=== PATIENT | male | born 1955 | race Caucasian/White ===

== ENCOUNTER 2017-05-04 12:42 | Emergency (ER) | payer BC, OTHER ==
[2017-05-04 13:51] LABS: CHLORIDE,CL 106 mmol/L (101-111); SODIUM,NA 143 mmol/L (135-145)
[2017-05-04] MEDS ORDERED: Sodium Chloride 0.9% 10 ML Syringe FLUSH PRN (14:10)
[2017-05-04] MEDS ORDERED: Pantoprazole 40 MG Vial IVPUSH ONE (14:11)
[2017-05-04] MEDS ORDERED: Sodium Chloride 0.9% 1,000 ML IV ONE (14:11)
[2017-05-04] MEDS ORDERED: Pantoprazole 40 MG in Sodium Chloride 0.9% 100 ML IV SCH (14:12)
--- NOTE | 2017-05-04 14:25 | EDM.PDOC ---
ED HPI GENERAL MEDICAL PROBLEM - General Chief Complaint: Gastrointestinal Problem Stated Complaint: [id number] SENT FROM CLINIC Time Seen by Provider: 05/04/17 12:55 Source of Information: Reports: Patient History Limitations: Reports: No Limitations - History of Present Illness INITIAL COMMENTS - FREE TEXT/NARRATIVE: Patient presents with c/o black stools for the past 3 days. He states he was feeling constipated and took a laxative this morning and his stool today was more brown. He does however c/o vague abdominal pain (burning and ache), fatigue , nausea at times for the past year. Onset: Today Onset Date: 05/01/17 Duration: Getting Worse Location: Reports: Abdomen Quality: Reports: Ache, Burning, Other (feeling of indigestion\) Severity: Mild Improves with: Reports: None Worsens with: Reports: None Associated Symptoms: Reports: Malaise, Weakness Generalized Pain Score (Numeric/FACES): 4 - Related Data Allergies Allergy/AdvReac Type Severity Reaction Status Date / Time No Known Allergies Allergy Verified 05/04/17 13:01 Home Meds: Home Meds Omeprazole 1 tab PO BEDTIME 05/27/16 [History] Aspirin [Artur Chewable Aspirin] 1 tab PO DAILY 05/04/17 [History] Past Medical History HEENT History: Reports: Hard of Hearing Cardiovascular History: Reports: None Respiratory History: Reports: None Gastrointestinal History: Reports: GERD Genitourinary History: Reports: None, Other (See Below) Other Genitourinary History: scheduled for prostate bx in near future Musculoskeletal History: Reports: Back Pain, Chronic Neurological History: Reports: Headaches, Chronic Other Neuro History: facial neuralgia Psychiatric History: Reports: PTSD Endocrine/Metabolic History: Reports: None Hematologic History: Reports: None, B12 Deficiency, Other (See Below) Other Hematologic History: lyme disease Immunologic History: Reports: Other (See Below) Other Immunologic History: lyme disease Oncologic (Cancer) History: Reports: None Dermatologic History: Reports: Other (See Below) Other Dermatologic History: thick cracked heles - Infectious Disease History Infectious Disease History: Reports: Chicken Pox, Other (See Below) Other Infectious Disease History: lyme disease - Past Surgical History Head Surgeries/Procedures: Reports: None HEENT Surgical History: Reports: None Cardiovascular Surgical History: Reports: None GI Surgical History: Reports: Appendectomy, Hernia Repair/Other, Other (See Below) Other GI Surgeries/Procedures: hemorrhoidectomy Social & Family History - Family History HEENT: Reports: Epistaxis Cardiac: Reports: PA Respiratory: Reports: None GI: Reports: None : Psychiatric: Reports: None Endocrine/Metabolic: Reports: None Hematologic: Reports: None Immunologic: Reports: None Dermatologic: Reports: None Oncologic: Reports: Prostate, Other (See Below) Other Oncologic Family History: stomach - Tobacco Use Smoking Status *Q: Current Every Day Smoker Years of Tobacco use: 42 Packs/Tins Daily: 0.3 Second Hand Smoke Exposure: No - Caffeine Use Caffeine Use: Reports: Coffee Other Caffeine Use: 16oz - Alcohol Use Days Per Week of Alcohol Use: 3 Number of Drinks Per Day: 3 Total Drinks Per Week: 9 - Recreational Drug Use Recreational Drug Use: No ED ROS GENERAL - Review of Systems Review Of Systems: See Below ED EXAM, GI/ABD - Physical Exam Exam: See Below Exam Limited By: No Limitations General Appearance: Alert, WD/WN, No Apparent Distress Ears: Normal External Exam, Hearing Grossly Normal Nose: Normal Inspection, No Blood Throat/Mouth: Normal Inspection, Normal Voice, No Airway Compromise Neck: Normal Inspection, Supple, Non-Tender, Full Range of Motion Respiratory/Chest: No Respiratory Distress, Lungs Clear, Normal Breath Sounds, No Accessory Muscle Use, Chest Non-Tender Cardiovascular: Normal Peripheral Pulses, Regular Rate, Rhythm, No Edema, No Gallop, No JVD, No Murmur, No Rub GI/Abdominal Exam: Normal Bowel Sounds, Soft, No Distention, Tender (diffuse) (Male) Exam: Deferred Rectal (Males) Exam: Normal Rectal Tone, Heme + Stool Back Exam: Normal Inspection, CVA Tenderness (L), CVA Tenderness (R), Decreased Range of Motion Extremities: Normal Inspection, Normal Range of Motion, Non-Tender, No Pedal Edema, Normal Capillary Refill Neurological: Alert, Oriented, Normal Cognition, Normal Gait Psychiatric: Normal Affect, Normal Mood Skin Exam: Warm, Dry, Intact, Normal Color, No Rash Lymphatic: No Adenopathy Course - Vital Signs Last Recorded V/S: Last Vital Signs Temp 97.2 F 05/04/17 12:54 Pulse 88 05/04/17 16:01 Resp 18 05/04/17 16:01 BP 126/69 05/04/17 16:01 Pulse Ox 98 05/04/17 16:01 - Orders/Labs/Meds Labs: Laboratory Tests 05/04/17 05/04/17 05/04/17 Range/Units 13:24 13:24 13:24 WBC 11.6 H (5.0-10.0) 10^3/uL RBC 3.50 L (4.6-6.2) 10^6/uL Hgb 11.5 L (14.0-18.0) g/dL Hct 34.0 L (40.0-54.0) % MCV 97.1 (80-100) fL MCH 32.9 (27.0-34.0) pg MCHC 33.8 (33.0-35.0) g/dL Plt Count 318 (150-450) 10^3/uL Neut % (Auto) 71.8 (42.2-75.2) % Lymph % (Auto) 17.5 L (20.5-50.1) % [place] % (Auto) 8.1 H (2-8) % Eos % (Auto) 2.3 (1.0-3.0) % Baso % (Auto) 0.3 (0.0-1.0) % PT 9.2 (9.0-12.0) SEC INR 0.9 (0.9-1.2) APTT (22.0-34.0) SEC Sodium 143 (135-145) mmol/L Potassium 4.3 (3.6-5.0) mmol/L Chloride 106 (101-111) mmol/L Carbon Dioxide 26.0 (21.0-31.0) mmol/L Anion Gap 15.3 BUN 26 H (7-18) mg/dL Creatinine 1.1 (0.6-1.3) mg/dL Est Cr Clr Drug Dosing 78.38 mL/min Estimated GFR (MDRD) > 60 BUN/Creatinine Ratio 23.63 Glucose 104 (74-105) mg/dL Calcium 9.2 (8.4-10.2) mg/dl Total Bilirubin 0.5 (0.2-1.0) mg/dL AST 23 (10-42) IU/L ALT 28 (10-60) IU/L Alkaline Phosphatase 57 (42-121) IU/L Total Protein 7.4 (6.7-8.2) g/dl Albumin 4.2 (3.2-5.5) g/dl Globulin 3.2 Albumin/Globulin Ratio 1.31 TSH, Ultra Sensitive (0.35-7.0) uIu/mL Urine Color (YELLOW) Urine Appearance (CLEAR) Urine pH (5.0-9.0) Ur Specific [place] (1.005-1.030) Urine Protein (NEGATIVE) Urine Glucose (UA) (NEGATIVE) Urine Ketones (NEGATIVE) Urine Occult Blood (NEGATIVE) Urine Nitrite (NEGATIVE) Urine Bilirubin (NEGATIVE) Urine Urobilinogen (0.2-1.0) mg/dL Ur Leukocyte Esterase (NEGATIVE) Urine RBC /HPF Urine WBC (0-5/HPF) /HPF Ur Epithelial Cells /HPF Urine Bacteria (0-FEW/HPF) /HPF Urine Mucus /LPF 05/04/17 05/04/17 05/04/17 Range/Units 13:24 13:24 13:30 WBC (5.0-10.0) 10^3/uL RBC (4.6-6.2) 10^6/uL Hgb (14.0-18.0) g/dL Hct (40.0-54.0) % MCV (80-100) fL MCH (27.0-34.0) pg MCHC (33.0-35.0) g/dL Plt Count (150-450) 10^3/uL Neut % (Auto) (42.2-75.2) % Lymph % (Auto) (20.5-50.1) % [place] % (Auto) (2-8) % Eos % (Auto) (1.0-3.0) % Baso % (Auto) (0.0-1.0) % PT (9.0-12.0) SEC INR (0.9-1.2) APTT 23.5 (22.0-34.0) SEC Sodium (135-145) mmol/L Potassium (3.6-5.0) mmol/L Chloride (101-111) mmol/L Carbon Dioxide (21.0-31.0) mmol/L Anion Gap BUN (7-18) mg/dL Creatinine (0.6-1.3) mg/dL Est Cr Clr Drug Dosing mL/min Estimated GFR (MDRD) BUN/Creatinine Ratio Glucose (74-105) mg/dL Calcium (8.4-10.2) mg/dl Total Bilirubin (0.2-1.0) mg/dL AST (10-42) IU/L ALT (10-60) IU/L Alkaline Phosphatase (42-121) IU/L Total Protein (6.7-8.2) g/dl Albumin (3.2-5.5) g/dl Globulin Albumin/Globulin Ratio TSH, Ultra Sensitive 4.92 (0.35-7.0) uIu/mL Urine Color Yellow (YELLOW) Urine Appearance Slightly cloudy (CLEAR) Urine pH 5.5 (5.0-9.0) Ur Specific [place] 1.020 (1.005-1.030) Urine Protein Negative (NEGATIVE) Urine Glucose (UA) Negative (NEGATIVE) Urine Ketones Trace H (NEGATIVE) Urine Occult Blood Negative (NEGATIVE) Urine Nitrite Negative (NEGATIVE) Urine Bilirubin Small H (NEGATIVE) Urine Urobilinogen 0.2 (0.2-1.0) mg/dL Ur Leukocyte Esterase Negative (NEGATIVE) Urine RBC 0-5 /HPF Urine WBC 0-5 (0-5/HPF) /HPF Ur Epithelial Cells Rare /HPF Urine Bacteria Few (0-FEW/HPF) /HPF Urine Mucus Few H /LPF Meds: Medications Discontinued Medications Generic Name Dose Route Start Last Admin Trade Name Freq PRN Reason Stop Dose Admin Sodium Chloride 1,000 mls @ 999 mls/hr 05/04/17 14:11 05/04/17 14:25 Normal Saline IV 05/04/17 15:11 999 mls/hr .BOLUS ONE Administration Pantoprazole Sodium 40 mg/ 100 mls @ 20 mls/hr 05/04/17 14:12 05/04/17 14:51 Sodium Chloride IV 20 mls/hr .CONTINUOS CAMI Administration Pantoprazole Sodium 80 mg 05/04/17 14:11 05/04/17 14:41 Protonix Iv IVPUSH 05/04/17 14:12 80 mg .BOLUS ONE Administration Sodium Chloride 10 ml 05/04/17 14:10 05/04/17 14:21 Saline Flush FLUSH 10 ml ASDIRECTED PRN Administration Keep Vein Open Departure - Departure Time of Disposition: 14:27 Disposition: DC/Tfer to Acute Hospital 02 Condition: Good Clinical Impression: Upper abdominal pain, Melena - Discharge Information Referrals: PCP,None [Primary Care Provider] - Forms: ED Department Discharge, Interfacility Transfer ML
[2017-05-04 16:01] VITALS: BP 126/69
== END 2017-05-04 16:10 ==
LOC: DL.ED 12:42
DX: K92.1 Melena (principal); R10.10 Upper abdominal pain, unspecified; K21.9 Gastro-esophageal reflux disease without esophagitis; F17.210 Nicotine dependence, cigarettes, uncomplicated; Z79.82 Long term (current) use of aspirin; Z90.49 Acquired absence of other specified parts of digestive tract; Z98.890 Other specified postprocedural states
CPT/HCPCS: 36415; 80053; 81001; 82272; 84443; 85025; 85610; 85730; 96365; 96376; 99285; C9113; J7030; J7050

== ENCOUNTER 2017-06-26 05:56 | Day surgery (SDC) | payer OTHER, BC ==
[2017-06-26] MEDS ORDERED: Midazolam 1 MG/ML 2 ML SDV IV ONE ×7 (05:57→07:11)
[2017-06-26] MEDS ORDERED: fentaNYL 100 MCG/2 ML SDV IV ONE ×4 (05:57→07:12)
[2017-06-26] MEDS ORDERED: Dextrose 5%-0.45% NaCl 1,000 ML IV SCH (06:00)
[2017-06-26] MEDS ORDERED: Sodium Chloride 0.9% 10 ML Syringe FLUSH PRN (06:00)
[2017-06-26] MEDS ORDERED: Midazolam 1 MG/ML 2 ML SDV ONE (06:10)
[2017-06-26] MEDS ORDERED: fentaNYL 100 MCG/2 ML SDV ONE (06:11)
--- NOTE | 2017-06-26 07:47 | OR ---
DATE: 06/26/2017 PROCEDURES: Total colonoscopy, narrow-band imaging, and cold snare polypectomy. INSTRUMENT USED: CF-H180 AL Olympus video colonoscope. PREMEDICATIONS: Fentanyl 125 mcg intravenous, Versed 4 mg intravenous. Nasal O2 cannula. The procedure was done under pulse oximetry, BP recording, and oracle developer. INDICATION: The patient with recent gastrointestinal bleeding and progressive constipation. Colonoscopic examination is done for detection of any polypoid lesions and removal, endoscopic hemostasis therapy if needed. DESCRIPTION OF PROCEDURE: Initial rectal exam showed some perianal deformity. Limited rigid anoscopy was unremarkable. The colonoscope was passed with ease up to the ileocecal area. Photographs were taken of the normal-appearing cecum identified by landmarks of appendiceal orifice and double-bulged ileocecal folds. No bleeding was noted from any of the visualized areas at the commencement of the examination. In the proximal rectum, 3-mm sized benign-appearing polyp was noted. NBI including magnification views were obtained. Cold snare polypectomy was done. The tissue was retrieved and sent for histopathology. No stricture. No vascular ectasia. No large isolated ulcerations seen. No evidence of diffuse inflammatory bowel disease in the form of friability, contact bleeding, or ulcerations. Probing the proximal sides of folds and flexures, using adequate distention and clearing up the stool material, withdrawal of the scope was made. Cecum to rectum time over 6 minutes. No bleeding was noted from any of the visualized areas at the completion of examination. IMPRESSION: Diminutive rectal polyp. The patient tolerated the procedure well. [facility] /[id number]
[2017-06-26 09:23] VITALS: BP 119/86
--- NOTE | 2017-06-26 11:41 | LETTER ---
06/26/2017 GUILLAUME Bernal [address] [id number] RE: KENNEDYMANNY JEREZ : 1955 Dear Ms. Michelle: Mr. Manny Kennedy had colonoscopic examination done this morning and he tolerated the procedure well. I herewith send a copy of the endoscopy note and photographs for your review. Thank you. Sincerely, [facility] /[id number]
== END 2017-06-26 09:26 | disposition home or self-care (01) ==
LOC: DL.ENDO 05:56
PROVIDERS: ATTEND Internal Medicine Gastroenterology
DX: K62.1 Rectal polyp (principal); K21.9 Gastro-esophageal reflux disease without esophagitis; E53.8 Deficiency of other specified B group vitamins; Z90.49 Acquired absence of other specified parts of digestive tract; Z98.890 Other specified postprocedural states
CPT/HCPCS: 45385; J2250; J3010; J7042; 88305